=== PATIENT | female | born 1970 | race Caucasian/White ===

== ENCOUNTER 2020-09-09 01:43 | Emergency (ER) | payer BC ==
[~2020-09-09] VITALS: Ht 165.1 cm; Wt 90.7 kg
[2020-09-09 01:50] VITALS: BP 128/72
--- NOTE | 2020-09-09 01:50 | NUR ---
ED Nurse Note: pt ambulated to ED from home c/o swelling in her throat and lips, rash and hives present. Pt also states that she had several episodes of emesis earlier. Pt has no known allergies but states she ate some new spices with dinner. Pt is A&Ox4, VSS, audible wheezes heard, pt placed on glass grinder, ERMD at bedside
--- NOTE | 2020-09-09 01:52 | Emergency Room Report ---
History of Present Illness General Chief Complaint: To Be Triaged Source: Patient Present Illness HPI This is a 50-year-old female with no past medical history. She presents with chief complaint of allergic reaction. She states she woke up feeling like something in her chest. She felt chest tightness. She tried a follow-up was unsuccessful. She noticed her lip was swollen. Also her fingers were swollen and itchy. Initially she did not think that she had anything new. No new medication. She did remember that she had pork chops tonight. Her use some recipe from the Internet. She said there was some new spices in it. Worse with inspiration. Better with rest. Did not take doing for this. Allergies: Coded Allergies: No Known Allergies (Unverified , 09/09/20) Patient History Past Medical History: see triage record, old chart reviewed Past Surgical History: none Pertinent Family History: none Social History: Denies: smoking Now: No Immunizations: other Reviewed Nursing Documentation: PMH: Agreed; PSxH: Agreed Review of Systems Eye: Denies: eye pain, blurred vision ENT: Denies: ear pain, nose congestion, throat swelling Respiratory: Reports: shortness of breath; Denies: cough Cardiovascular: Denies: chest pain, palpitations Gastrointestinal: Denies: abdominal pain, diarrhea, nausea, vomiting Musculoskeletal: Denies: back pain, joint pain Skin: Denies: rash Neurological: Denies: headache, numbness Endocrine: Denies: increased thirst, increased urine Hematologic/Lymphatic: Denies: easy bruising All Other Systems: negative except mentioned in HPI Physical Exam Vitals unremarkable Sp02 EP Interpretation: reviewed, normal General Appearance: well appearing, no apparent distress, alert Head: normocephalic, atraumatic Eyes: right eye other - right lower lid with external stye; bilateral eye PERRL, bilateral eye EOMI ENT: hearing grossly normal, normal pharynx, other - Lower lip is swollen but soft. No tongue edema. Neck: full range of motion, supple, no meningismus Respiratory: chest non-tender, lungs clear, wheezing - Very faint expiratory wheezing. Cardiovascular #1: regular rate, rhythm, no murmur Gastrointestinal: normal bowel sounds, non tender, no mass, no organomegaly, no bruit, non-distended Musculoskeletal: back normal, normal range of motion, gait/station normal Psychiatric: mood/affect normal Medical Decision Making Diagnostic Impression: Primary Impression: Allergic reaction to food Qualified Codes: T78.1XXA - Other adverse food reactions, not elsewhere classified, initial encounter ER Course Patient presents with allergic reaction. This is most likely to be ingredients in her pork chop that she had tonight. She is not on any new medication or any other food. She is feeling much better. Swelling of her lips is down. Breathing much better. She says she is back to baseline. Will discharge home. Status: improved Disposition: HOME, SELF-CARE Condition: Stable Scripts Prednisone* (PREDNISONE*) 20 Mg Tablet 40 MG ORAL DAILY, #8 TAB Prov: Dexter Astorga MD 09/09/20 Diphenhydramine Hcl* (BENADRYL*) 25 Mg Capsule 50 MG ORAL Q6H PRN for Itching, #30 CAP Prov: Dexter Astorga MD 09/09/20 Additional Instructions: Follow-up with In 7 days but return if symptoms worsen. Dexter Astorga MD Sep 09, 2020 01:52
[2020-09-09] MEDS ORDERED: DiphenhydrAMINE 50mg/ml Inj IVP ONE (02:00)
[2020-09-09] MEDS ORDERED: Albuterol ud Inhalation HHN ONE (02:00)
[2020-09-09] MEDS ORDERED: Solu-MEDROL 125mg Inj IVP ONE (02:00)
--- NOTE | 2020-09-09 02:15 | NUR ---
ED Nurse Note: RT at bedside
[2020-09-09] MEDS ORDERED: BENADRYL25 MG ORAL (03:36)
[2020-09-09] MEDS ORDERED: PREDNISONE20 MG ORAL (03:36)
[2020-09-09] MEDS ORDERED: ERYTHROMYCIN3.5 GM RIGHT EYE (03:43)
--- NOTE | 2020-09-09 03:43 | NUR ---
ER DISCHARGE NOTE: Patient is cleared to be discharged per ERMD, pt is aox4, on room air, with stable vital signs. pt was given dc and prescription instructions, pt was able to verbalize understanding, pt id band and iv site removed without complications. pt is able to ambulate with steady gait. pt took all belongings. Pt's condition is much improved
[2020-09-09 03:44] VITALS: BP 131/70
== END 2020-09-09 03:45 | disposition home or self-care (01) ==
LOC: EMR 01:56
DX: T78.40XA Allergy, unspecified, initial encounter (principal); X58.XXXA Exposure to other specified factors, initial encounter; R06.02 Shortness of breath; H00.012 Hordeolum externum right lower eyelid
CPT/HCPCS: 94640; 96374; 96375; 99284; J1200; J2405; J2930; S0028